=== PATIENT | female | born 1960 | race Caucasian/White ===

== ENCOUNTER 2017-09-10 11:26 | Inpatient (IN) ==
--- NOTE | 2017-09-10 11:40 | Emergency Department Note ---
Lower Extremity Injury HPI - General Chief Complaint: Extremity Injury, Lower Stated Complaint: Infected knee Time Seen by Provider: 09/10/17 11:28 Source: patient Mode of arrival: ambulatory Limitations: no limitations - History of Present Illness HPI Narrative: 56-year-old female presents with infected left total knee. She states about 2 weeks after her surgery which was on July 07 she was doing exercises and her wound opened up. She saw Dr. Olmedo today and he wants to do an I&D of her left knee. She states it is painful. She will be going to surgery right away. She denies any heart issues but does smoke daily. - Related Data Allergies Allergy/AdvReac Type Severity Reaction Status Date / Time No Known Drug Allergies Allergy Verified 09/10/17 11:30 Review of Systems All systems ED: reviewed and negative except as stated. 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 There is serosanguineous drainage from it. She does have erythema below the knee. Warmth as well Limitations: no limitations General appearance: alert, in no apparent distress Head: atraumatic Eye: Present: normal appearance. Absent: conjunctival injection Neck: Present: normal inspection, full ROM Chest: Present: normal inspection, symmetric chest wall rise Respiratory: Present: normal lung sounds bilaterally Cardiovascular: Present: regular rate, normal heart sounds Abdominal: Present: soft, normal bowel sounds. 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) Condition: Fair Referrals: Thien Guardado [Primary Care Provider] -
[2017-09-10] MEDS ORDERED: ceFAZolin 1 GM VIAL ONE ×2 (11:59)
[2017-09-10] MEDS ORDERED: ceFAZolin 1 GM VIAL IV SCH (12:00)
[2017-09-10] MEDS ORDERED: ONDANSETRON 4 MG/2 ML VIAL IV ONE (12:05)
[2017-09-10] MEDS ORDERED: HYDROmorphone 2 MG/ML VIAL IV ONE (12:05)
[2017-09-10] MEDS ORDERED: LIDOCAINE HCL/PF 100 MG/5 ML SYRINGE IV ONE (12:05)
[2017-09-10] MEDS ORDERED: PHENYLEPHRINE 10 MG/ML VIAL IV ONE (12:05)
[2017-09-10] MEDS ORDERED: MIDAZOLAM 2 MG/2 ML VIAL IV ONE (12:05)
[2017-09-10] MEDS ORDERED: PROPOFOL 200 MG/20 ML VIAL IV ONE (12:05)
[2017-09-10] MEDS ORDERED: GLYCOPYRROLATE 0.2 MG/ML VIAL IV ONE (12:05)
[2017-09-10] MEDS ORDERED: DEXAMETHASONE 10 MG/ML VIAL IV ONE (12:05)
[2017-09-10] MEDS ORDERED: KETAMINE 100 MG/ML ML IV ONE (12:05)
[2017-09-10] MEDS ORDERED: PROMETHAZINE 25 MG/ML VIAL IV ONE (12:05)
[2017-09-10] MEDS ORDERED: MEPERIDINE 50 MG/ML INJECTION IM PRN (12:24)
[2017-09-10] MEDS ORDERED: METHOCARBAMOL 1,000 MG/10 ML VIAL IV PRN (12:24)
[2017-09-10] MEDS ORDERED: MEPERIDINE 25 MG/ML SYRINGE IV PRN (12:24)
[2017-09-10] MEDS ORDERED: LACTATED RINGERS 250 ML IV PRN (12:24)
[2017-09-10] MEDS ORDERED: FLUMAZENIL 0.1 MG/ML ML IV PRN (12:24)
[2017-09-10] MEDS ORDERED: fentaNYL 100 MCG/2 ML VIAL IV PRN (12:24)
[2017-09-10] MEDS ORDERED: ACETAMINOPHEN 1,000 MG/100 ML BOTTLE IV ONE (12:24)
[2017-09-10] MEDS ORDERED: BENZOCAINE/MENTHOL 1 LOZENGE PO PRN (12:24)
[2017-09-10] MEDS ORDERED: IPRATROPIUM/ALBUTEROL 3 ML AMPUL.NEB NEB PRN (12:24)
[2017-09-10] MEDS ORDERED: NALOXONE HCL 0.4 MG/ML VIAL IV PRN (12:24)
[2017-09-10] MEDS ORDERED: PROMETHAZINE 25 MG/ML VIAL IM PRN (12:24)
[2017-09-10] MEDS ORDERED: ONDANSETRON 4 MG/2 ML VIAL IV PRN ×2 (12:24→12:39)
[2017-09-10] MEDS ORDERED: LACTATED RINGERS 1,000 ML IV SCH (12:30)
--- NOTE | 2017-09-10 12:38 | Brief Operative Note ---
Date of procedure: 09/10/17 Pre-op diagnosis: Infected total knee arthroplasty with large open wound Post-op diagnosis: same Procedure: Irrigation and debridement of infected total knee arthroplasty Grafts/Implants: No Anesthesia: spinal, GLMA Findings: puss down to joint Complications: none Surgeon: Bryson Olmedo Insurance Underwriting Assistant: PCP No Estimated blood loss (cc): 30 Condition: stable Disposition: PACU
[2017-09-10] MEDS ORDERED: POLYETHYLENE GLYCOL 3350 17 GM PACKET PO PRN (12:39)
[2017-09-10] MEDS ORDERED: TRANEXAMIC ACID 1,000 MG/10 ML VIAL IV ONE (12:39)
[2017-09-10] MEDS ORDERED: MAGNESIUM HYDROXIDE 30 ML ORAL.SUSP PO PRN (12:39)
[2017-09-10] MEDS ORDERED: FLEETS ADULT ENEMA PR PRN (12:39)
[2017-09-10] MEDS ORDERED: BISACODYL 10 MG SUPP.RECT PR PRN (12:39)
[2017-09-10] MEDS ORDERED: VANCOMYCIN PER PHARMACY IV SCH (13:00)
--- NOTE | 2017-09-10 14:06 | Operative Note ---
DATE OF OPERATION: 09/10/2017 PREOPERATIVE DIAGNOSIS: Left infected total knee arthroplasty with large open dehisced wound. POSTOPERATIVE DIAGNOSIS: Left infected total knee arthroplasty with large open dehisced wound. PROCEDURE PERFORMED: SURGEON: Bryson Olmedo MD. CONCRETE [employer] PLANT SUPERVISOR: None. ANESTHESIA: Spinal plus general. DRAINS: None. SPECIMENS: None. COMPLICATIONS: None. BLOOD LOSS: 5 mL POSTOPERATIVE CONDITION: Stable. INDICATIONS FOR SURGERY: This is a 56-year-old female who two months prior had undergone a left total knee arthroplasty for advanced arthrosis. She had done reasonably well postoperatively; however, had had her wound necrose and dehisced open superficially. She did not have any extension into the deep portion and did not ever appear infected, so this was being managed conservatively with a wound V.A.C. She had been doing reasonably well without significant pain or drainage up until several days ago at which point she started having increasing pain and drainage. She presented to the clinic today and her inferior portion of her wound was erythematous with purulent drainage and the mid portion of the wound actually had communication down to the joint prosthesis. I did contact a revision joint specialist in [place] who is going to take her to surgery on Wednesday. She will be transferred to [place] on Wednesday. I was concerned of her getting septic over the weekend as she was feeling worse so elected to proceed with a preliminary washout and to start her on IV antibiotics. FINDINGS AT SURGERY: She did have gross purulence extending down to the prosthesis with an open wound. PROCEDURE IN DETAIL: The patient had been seen in preop holding and informed consent had been obtained after discussion of risks and benefits of surgery. Risks including, but not limited to, bleeding; continued infection; injury to nerves, blood vessels or other surrounding structures; anesthetic risks; the need for further surgery. At minimum, she is going to have the prosthesis removed, treated with IV antibiotics and possibly even amputation if this is not able to heal. She understands these risks and wished to proceed. Correct operative site was marked and patient received spinal anesthesia. She was taken to the operating room and LMA general given. Left lower extremity was prepped and draped in normal sterile fashion and a time-out performed verifying patient name, operative site, and plan. The leg was elevated for a minute, and then tourniquet was inflated and placed into the leg joy. The inferior portion of her incision was opened and connected to the open wound and there was a large purulent pocket over the anterior medial proximal tibia. Once connecting this, we were able to palpate into the joint and the proximal wound already communicated into the joint. We then used a rongeur to debride any purulent or necrotic-looking tissue and then pulse lavaged with saline for about 2000 mL and then irrigated the whole bottle of IrriSept. I let this sit within the joint for 2 minutes and then pulse lavaged with the remaining liter of saline. After this was completed, we used a Betadine soaked Kerlix and packed the wound along with fluffs and ABD. Sterile Kerlix was wrapped loosely around and an Bar wrap and tourniquet was released. The patient was awakened, extubated, and transferred to recovery in stable condition. ZA:david Job ID: [id number] Doc ID: [id number] Bryson Olmedo MD
[2017-09-10 14:25] LABS: Mean Cell Volume 93.1 fL (80.0-100.0); Mean Corpuscular HGB Conc 32.7 g/dL (31.0-36.0); Mean Corpuscular Hemoglobin 30.4 pg (26.0-34.0); Platelet Count 353 K/mcL (140-440); RBC 3.25 M/mcL (4.00-5.20); Red Cell Distribution Width 18.2 % (11.5-14.5)
[2017-09-10 14:47] LABS: C-Reactive Protein 7.2 mg/dl (0.0-0.8)
[2017-09-10] MEDS ORDERED: 0.9 % SODIUM CHLORIDE 10 ML SYRINGE IV PRN (14:54)
[2017-09-10] MEDS ORDERED: VANCOMYCIN 1,500 MG in 0.9 % SODIUM CHLORIDE 500 ML IV ONE (15:00)
[2017-09-10 16:07] LABS: Erythrocyte Sedimentation Rate 100 mm/hr (0-20)
--- NOTE | 2017-09-10 16:11 | XRay Report ---
INDICATION: PICC line placement TECHNIQUE: AP chest x-ray,portable semiupright COMPARISON: None FINDINGS:Left-sided PICC line with its tip in the superior vena cava Lungs are negative. No parenchymal infiltrate or mass. No focal abnormality. Heart size and vascularity are normal. Giuliana and mediastinum are negative. IMPRESSION: 1. Left-sided PICC line in the superior vena cava 2. Otherwise negative chest x-ray Interpreted and Authenticated by: Lenin Crain 09/10/17
[2017-09-10] MEDS: 0.9 % SODIUM CHLORIDE 10 ML SYRINGE IV SCH ×3 (17:08→21:11)
[2017-09-10 17:34] LABS: Anisocytosis 1+ (NONE SEEN); Band Neutrophils % 1 % (0-10); Lymphocytes % 17 % (15-49); Monocytes % (Manual) 4 % (1-12); Myelocytes % 1 % (0-0); Platelet Estimate NORMAL (NORMAL); RBC Morphology ABNORM (NORMAL); Segmented Neutrophils % 75 % (38-78)
--- NOTE | 2017-09-10 17:54 | General Surgery Consult Note ---
History of Present Illness Patient information: Note initiated : 09/10/17 at 5:31 pm Service Date, if different from initiated Date: [] Patient: Criselda Bellamy a 56 y/o F admitted on 09/10/17 for Infected Knee. Chief Complaint: [] Consult date: 09/10/17 Requesting physician: Bryson Olmedo History of present illness: 09/10/2017 17:30 Hours. I saw this lady in consultation for TCOM measurements and EILEEN today. S: This is a 56/F status post Left TKA over 2 months ago. She had wound dehiscence with purulent drainage noticed today. Underwent exploration of surgical wound and purulence pocket which extended into knee joint and prosthesis. The joint was thoroughly washed, lavaged and cultured. Patient is scheduled to be transferred to [place] on Wednesday09/12/2017 for removal of the prosthesis, placement of a spacer AND further revision later. Wound care was consulted for a TCOM and TBI / EILEEN measurements. I saw the patient along with Anitha FRAGOSO and subsequently spoke with Dr. Olmedo at length. O: Patient is a well built and nourished lady in NO distress, Afebrile with stable vital signs. I had a detailed conversation with her. First and foremost, I strongly counseled about TOTAL avoidance of cigarettes and use of any tobacco or nicotine related products to OPTIMIZE her chances of wound healing. HEENT and Neck Exam with in Normal limits. Lungs are clear to auscultation and Heart sounds are normal. Soft abdomen. NON FOCAL and NORMAL neurological examination. BUE and RLE examination is with in normal limits. L/E: LLE. Dressings clean dry and intact. Normal and symmetrical pedal pulses 3 to 4 + DP and PT. No sensory motor deficits. Lower leg, ankle and foot is warm and dry. No calf or thigh tenderness. Ankle joint and toe movements are with in normal range. A: Patient is stable post operatively. DO NOT suspect any limb threatening ISCHEMIC process. Her base line clinical evaluation is with in normal limits. She is stable to be observed and transferred to [place] on Wednesday09/12/2017. I will hold off on any TBI / EILEEN or TCOM measurements at this time and follow her clinically over the week end and until her transfer to [place]. Will be glad to see her for wound related issues upon her return from [place] after corrective surgery. THANK YOU DR. OLMEDO for this consult and allowing me to participate in her care. Medications and Allergies Allergies Allergy/AdvReac Type Severity Reaction Status Date / Time No Known Drug Allergies Allergy Verified 09/10/17 11:30 Exam Temp Pulse Resp BP Pulse Ox 98.0 F 73 15 159/87 95 09/10/17 13:29 09/10/17 13:20 09/10/17 13:20 09/10/17 15:00 09/10/17 15:00 Results - Labs 09/10/17 13:45 Abnormal lab results 09/10/17 09/10/17 Range/Units 13:45 13:45 RBC 3.25 L (4.00-5.20) M/mcL Hgb 9.9 L (12.0-15.0) g/dL Hct 30.3 L (36.0-48.0) % RDW 18.2 H (11.5-14.5) % MPV 6.2 L (7.4-10.4) fL ESR 100 H (0-20) mm/hr C-Reactive Protein 7.2 H (0.0-0.8) mg/dl All other labs normal.
[2017-09-10] MEDS: HYDROCODONE/APAP 7.5/325MG TABLET PO PRN ×2 (18:04→22:00)
[2017-09-10] MEDS: NICOTINE 21 MG PATCH TOPICAL SCH (18:05)
[2017-09-10] MEDS ORDERED: ALBUTEROL SULFATE 1 PUFF INHALER INH PRN (18:37)
[2017-09-10] MEDS ORDERED: ROSUVASTATIN 10 MG TABLET PO SCH (21:00)
[2017-09-10] MEDS: DOCUSATE SODIUM 100 MG CAPSULE PO SCH ×2 (21:01→21:04)
[2017-09-10] MEDS: ATORVASTATIN 20 MG TABLET PO SCH (21:01)
[2017-09-10] MEDS: LORazepam 0.5 MG TABLET PO SCH (21:01)
[2017-09-11] MEDS: HYDROCODONE/APAP 7.5/325MG TABLET PO PRN ×4 (01:56→20:24)
[2017-09-11] MEDS: 0.9 % SODIUM CHLORIDE 10 ML SYRINGE IV SCH ×4 (05:09→21:45)
--- NOTE | 2017-09-11 06:53 | General Surgery Progress Note ---
Subjective Narrative: Note initiated : 09/11/17 at 6:49 am Service Date, if different from initiated Date: [] Patient: Criselda Bellamy 56 y/o F admitted on 09/10/17 for Infected Knee. Chief Complaint: [] Patient seen with nursing staff. Uneventful night except for post operative pain. Full ROM of Left ankle and toes PWD. Objective Temp Pulse Resp BP Pulse Ox 98.7 F 62 16 174/92 97 09/11/17 04:00 09/11/17 04:00 09/11/17 04:00 09/11/17 04:00 09/11/17 04:00 AVSS. No Changes DIMITRY> Left foot Normal exam. Bounding pulses. FROM toes PWD. Wound checked. NO purulence. Betadine soaked overlying gauze replaced. Reinforced and redressed. - Additional Data Intake & Output - Last 24 hours: Intake & Output 09/09/17 09/10/17 09/11/17 09/12/17 05:59 05:59 05:59 05:59 Intake Total 2790 / 2790 Output Total 3430 / 3430 Balance -640 / -640 Weight 149 lb 8 oz - Labs 09/10/17 13:45 Assessment and Plan - Narrative A/P Narrative: Assessment: Stable: No interval changes. Plan: Continue to observe and monitor. Awaits transfer to [place] tomorrow. 09/12/2017 - Time Spent With Patient Total time spent is greater than 50% in coordination of care (as documented) at patient's floor/unit and/or counseling patient: 15 - 24 minutes
--- NOTE | 2017-09-11 07:15 | Orthopedic Progress Note ---
Subjective Patient information: Note initiated : 09/11/17 at 7:14 am Service Date, if different from initiated Date: [] Patient: Criselda Bellamy 56 y/o F admitted on 09/10/17 for Infected Knee. Chief Complaint: [POD #1 s/p I&D of left knee Doing okay. Denies numbness, tingling, calf pain, CP or SOB. Was seen in conjunction with Dr. Spencer. Pulses distally are bounding. Wound redressed by myself with RN in room. [facility]- planning to research options today.] Objective Vital signs: Vital Signs Temp Pulse Pulse Resp BP BP BP 09/11/17 06:54 97.3 F 16 185/94 09/11/17 04:00 98.7 F 62 16 174/92 09/10/17 23:43 98.4 F 65 14 176/83 09/10/17 23:42 09/10/17 20:00 09/10/17 19:12 98.7 F 72 16 162/86 09/10/17 16:43 09/10/17 15:00 159/87 09/10/17 14:29 160/97 09/10/17 14:14 152/80 09/10/17 13:59 157/88 09/10/17 13:44 146/80 09/10/17 13:29 98.0 F 147/95 09/10/17 13:20 98.7 F 73 15 146/80 09/10/17 13:05 64 16 145/77 09/10/17 12:47 97.4 F 64 9 L 106/63 09/10/17 11:48 98.2 F 74 18 161/84 09/10/17 11:26 98.2 F 74 18 161/84 Pulse Ox 09/11/17 06:54 97 09/11/17 04:00 97 09/10/17 23:43 97 09/10/17 23:42 97 09/10/17 20:00 96 09/10/17 19:12 96 09/10/17 16:43 95 09/10/17 15:00 95 09/10/17 14:29 93 09/10/17 14:14 95 09/10/17 13:59 90 09/10/17 13:44 94 09/10/17 13:29 93 09/10/17 13:20 97 09/10/17 13:05 96 09/10/17 12:47 100 09/10/17 11:48 96 09/10/17 11:26 96 Intake and Output 09/10/17 09/11/17 09/11/17 21:59 05:59 13:59 Intake Total 740 / 740 800 / 800 Output Total 2099 1300 / 1300 Balance -1360 / -1360 -500 / -500 Intake: IV 500 / 500 Oral 240 / 240 800 / 800 Output: Void Amount 2099 1300 / 1300 Other: Meal Dinner Percent of Meal Consumed 75% Feeding Ability Independent # Voids 1 Weight 149 lb 8 oz Intake & Output: Intake & Output 09/10/17 09/11/17 09/11/17 21:59 05:59 13:59 Intake Total 740 / 740 800 / 800 Output Total 2099 1300 / 1300 Balance -1360 / -1360 -500 / -500 Weight 149 lb 8 oz Intake: IV 500 / 500 Oral 240 / 240 800 / 800 Output: Void Amount 2099 1300 / 1300 Other: Meal Dinner Percent of Meal Consumed 75% Feeding Ability Independent # Voids 1 Incision: Yes draining, Yes clean and dry Incision clean and dry: Yes (dressing changed by myself, open wound without gross drainage) Dressing: Yes clean, Yes dry, Yes intact Weight bearing status: non Range of motion: full AROM b/l feet/ankles Neurological exam IM: Yes alert, Yes oriented X3, Yes motor sensory intact, Yes neurovascular intact Extremities exam IM: No calf tenderness, Yes normal capillary refill, Yes normal inspection, No Day's sign, Yes Foot pink and warm, Yes neurovascular intact - [place] Pulses Peripheral pulses: 2+: dorsalis pedis (L), dorsalis pedis (R), posterior tibialis (L), posterior tibialis (R) - Labs CBC & BMP: 09/10/17 13:45 Labs: 09/10/17 13:45 Hgb 9.9 L Hct 30.3 L Assessment and Plan (1) Infection of total left knee replacement POD #1 s/p left knee I&D: -planning to d/c to [place] on 09/12/2017 for left total knee revision -PICC line in place for IV Vanco -wound appears healthy. Cultures still pending. No WBC count elevation as of today -nurses trying to arrange for transportation of patient to [place] -no need to rechange dressing today unless soaks through -discussed CIWA protocol with pharmacy. Adding Ativan prn withdrawal symptoms to patient's med list Status: Acute
[2017-09-11] MEDS ORDERED: LORazepam 2 MG/ML VIAL IV PRN (07:19)
[2017-09-11] MEDS: HYDROCHLOROTHIAZIDE 25 MG TABLET PO SCH (09:31)
[2017-09-11] MEDS: DOCUSATE SODIUM 100 MG CAPSULE PO SCH (09:32)
[2017-09-11] MEDS: LISINOPRIL 20 MG TABLET PO SCH (09:32)
[2017-09-11] MEDS: SERTRALINE 100 MG TABLET PO SCH (09:32)
[2017-09-11] MEDS: LORazepam 0.5 MG TABLET PO SCH ×2 (09:32→20:20)
[2017-09-11] MEDS: METOPROLOL SUCCINATE 50 MG TAB.XL.24H PO SCH (09:32)
[2017-09-11] MEDS: VANCOMYCIN 1,000 MG in 0.9 % SODIUM CHLORIDE 250 ML IV SCH ×2 (09:33→21:00)
[2017-09-11] MEDS ORDERED: NICOTINE 21 MG PATCH TOPICAL SCH (10:00)
[2017-09-11] MEDS: MULTIVIT,THER IRON,CA,FA & MIN 1 TABLET PO SCH (10:27)
[2017-09-11] MEDS: NICOTINE 21 MG PATCH TOPICAL SCH (10:27)
--- NOTE | 2017-09-11 11:47 | Discharge Summary ---
Ortho Discharge - TKA - Patient Instructions Diet: Regular Diet Activity: weight bearing as tolerated Total Knee Protocol: For Total Knee: Start ROM LOLI with stationary bike or rocking chair. Work on gaining full extension of knee. Posterior dislocation precautions provided. Hip abductor strengthening and gait training instructions provided. Apply Cryocuff as instructed. Dressing Care: Other (keep wound dry) - Follow Up Plan Follow Up Appointments: Thien Guardado [Physician] - Disposition: [facility] Prognosis: Fair Rehab Potential: Fair
--- NOTE | 2017-09-11 12:06 | Orthopedic Progress Note ---
Subjective Patient information: Note initiated : 09/11/17 at 12:03 pm Service Date, if different from initiated Date: [] Patient: Criselda Bellamy 56 y/o F admitted on 09/10/17 for Infected Knee. Chief Complaint: [] Principal diagnosis: infected TKA with dehisced wound Interval history: c/o pain Objective Vital signs: Vital Signs Temp Pulse Resp BP BP Pulse Ox 09/11/17 07:17 16 97 09/11/17 06:54 97.3 F 16 185/94 97 09/11/17 04:00 98.7 F 62 16 174/92 97 09/10/17 23:43 98.4 F 65 14 176/83 97 09/10/17 23:42 97 09/10/17 20:00 96 09/10/17 19:12 98.7 F 72 16 162/86 96 09/10/17 16:43 95 09/10/17 15:00 159/87 95 09/10/17 14:29 160/97 93 09/10/17 14:14 152/80 95 09/10/17 13:59 157/88 90 09/10/17 13:44 146/80 94 09/10/17 13:29 98.0 F 147/95 93 09/10/17 13:20 98.7 F 73 15 146/80 97 09/10/17 13:05 64 16 145/77 96 09/10/17 12:47 97.4 F 64 9 L 106/63 100 Intake and Output 09/10/17 09/11/17 09/11/17 21:59 05:59 13:59 Intake Total 740 / 740 800 / 800 Output Total 2099 1300 / 1300 Balance -1360 / -1360 -500 / -500 Intake: IV 500 / 500 Oral 240 / 240 800 / 800 Output: Void Amount 2099 1300 / 1300 Other: Meal Dinner Percent of Meal Consumed 75% Feeding Ability Independent # Voids 1 Weight 149 lb 8 oz Intake & Output: Intake & Output 09/10/17 09/11/17 09/11/17 21:59 05:59 13:59 Intake Total 740 / 740 800 / 800 Output Total 2099 1300 / 1300 Balance -1360 / -1360 -500 / -500 Weight 149 lb 8 oz Intake: IV 500 / 500 Oral 240 / 240 800 / 800 Output: Void Amount 2100 / 2100 1300 / 1300 Other: Meal Dinner Percent of Meal Consumed 75% Feeding Ability Independent # Voids 1 Dressing: Yes clean, Yes dry, Yes intact - Labs CBC & BMP: 09/10/17 13:45 Labs: 09/10/17 13:45 Hgb 9.9 L Hct 30.3 L Assessment and Plan (1) Infection of total left knee replacement POD#1 s/p I&D-afebrile, normal WBC, wound cx is currently lost -cont IV abx and dressing changes -transfer to [facility] in [place] tomorrow, Dr. Robbie Carolina accepting physician -try to track down cx specimen (pt delivered it to [facility] directly yesterday) Status: Acute
[2017-09-11] MEDS ORDERED: OMEPRAZOLE 20 MG CAPSULE PO ONE (20:11)
[2017-09-11] MEDS: ATORVASTATIN 20 MG TABLET PO SCH (21:00)
[2017-09-12] MEDS: HYDROCODONE/APAP 7.5/325MG TABLET PO PRN ×4 (00:30→16:44)
[2017-09-12] MEDS: 0.9 % SODIUM CHLORIDE 10 ML SYRINGE IV SCH ×4 (08:00→15:07)
[2017-09-12] MEDS: LISINOPRIL 20 MG TABLET PO SCH (08:55)
[2017-09-12] MEDS: LORazepam 0.5 MG TABLET PO SCH (08:55)
[2017-09-12] MEDS: METOPROLOL SUCCINATE 50 MG TAB.XL.24H PO SCH (08:55)
[2017-09-12] MEDS: SERTRALINE 100 MG TABLET PO SCH (08:55)
[2017-09-12] MEDS: MULTIVIT,THER IRON,CA,FA & MIN 1 TABLET PO SCH (08:55)
[2017-09-12] MEDS: HYDROCHLOROTHIAZIDE 25 MG TABLET PO SCH (08:55)
[2017-09-12] MEDS: OMEPRAZOLE 20 MG CAPSULE PO SCH ×2 (08:55→18:38)
[2017-09-12] MEDS: NICOTINE 21 MG PATCH TOPICAL SCH (10:00)
[2017-09-12] MEDS: DOCUSATE SODIUM 100 MG CAPSULE PO SCH ×2 (14:33→18:36)
[2017-09-12] MEDS: VANCOMYCIN 1,000 MG in 0.9 % SODIUM CHLORIDE 250 ML IV SCH (14:53)
--- NOTE | 2017-09-13 15:11 | Discharge Summary ---
DATE OF ADMISSION: 09/10/2017 DATE OF DISCHARGE: 09/12/2017 ADMITTING PHYSICIAN: Bryson Olmedo MD ATTENDING PHYSICIAN: Bryson Olmedo MD CHIEF COMPLAINT: Painful, draining right knee wound. HISTORY OF PRESENT ILLNESS: This is a 56-year-old female who underwent a total knee arthroplasty by me approximately two months prior. She is a heavy smoker and ended up having a wound that became somewhat necrotic and then dehisced. She was being managed nonoperatively due to the fact that the wound did not connect deep and there was no evidence of infection. She is being treated with a wound V.A.C. Approximately 4 days prior to admission she started having increasing pain as well as drainage from the wound. She was started on oral antibiotics and was told to follow up with me. She came in on 09/10 and was noted to have significant erythema and drainage. She was then sent to [facility] where I recommended surgical I and D. PRINCIPAL DIAGNOSIS: infected right total knee prosthesis with large nonhealing wound. OTHER DIAGNOSES: 1. Hypertension. 2. Alcohol abuse. 3. Nicotine dependence. 4. Anxiety and depression. PROCEDURES: On 09/10/2017 patient underwent an incision, irrigation and debridement performed by me. HOSPITAL COURSE: The patient was admitted for surgical irrigation and debridement and to start on IV antibiotics. I had contacted Dr. Robbie Austin in [place], who has accepted the patient for transfer on 09/12/2017 for anticipated surgical removal of her prosthesis on 09/13/2017 at [facility]. She was afebrile throughout her hospitalization. Vital signs were stable. Erythrocyte sedimentation rate was 100 and C-reactive protein was over 7. White blood cell count was normal. Cultures are still pending discharge. DISCHARGE ORDERS: She was discharged to [facility] in [place], Dr. Robbie Austin, accepting physician. Activity as tolerated, diet regular. MEDICATIONS: She is currently on vancomycin, dosing per the pharmacy. She does have a PICC line for this. She is also taking her home medications as well as [place] 10/325 mg for pain. She is instructed to follow up with me as needed, and most likely will be following up with Dr. Austin. BJB:[email or web address] Job ID: [id number] Doc ID: [id number] Bryson Olmedo MD
== END 2017-09-12 17:00 | disposition short-term general hospital (02) | DRG 464 ==
LOC: ED 11:26 → SUR 11:42 → MEDSUR 13:27
PROVIDERS: ADMIT Orthopaedic Surgery; ATTEND Orthopaedic Surgery

== ENCOUNTER 2023-08-23 07:30 | Inpatient (IN) ==
[2023-08-12 12:57] LABS: Appearance,Urine Clear (Clear); Bilirubin,Urine Negative (Negative); Color,Urine Yellow; Glucose,Urine (UA) Negative (Negative); Ketones,Urine Negative (Negative); Leukocyte Esterase,Urine Negative /uL (Negative); Nitrate,Urine Negative (Negative); PH,Urine 5.5 (5.0-9.0); Protein,Urine >=300 mg/dL (Negative); Specific Gravity,Urine 1.025 (1.000-1.035); Urine Blood Negative ery/mcL (Negative); Urobilinogen,Urine Normal
[2023-08-12 12:58] LABS: Basophils # (Auto) 0.05 K/mcL (0.00-0.30); Basophils % (Auto) 0.9 % (0.0-2.0); Eosinophils # (Auto) 0.12 K/mcL (0.00-0.70); Eosinophils % (Auto) 2.2 % (0.0-7.0); Hematocrit 34.3 % (34.1-44.9); Hemoglobin 10.5 g/dL (11.2-15.7); Lymphocytes # (Auto) 1.33 K/mcL (1.50-4.80); Lymphocytes % (Auto) 24.3 % (15.5-49.0); Mean Cell Volume 95.5 fL (80.0-100.0); Mean Corpuscular HGB Conc 30.6 g/dL (31.0-36.0); Mean Platelet Volume 9.8 fL (8.8-12.5); Monocytes # (Auto) 0.33 K/mcL (0.10-0.90); Neutrophils % (Auto) 66.2 % (38.0-78.0); Platelet Count 198 K/mcL (140-440); RBC 3.59 M/mcL (3.59-5.38); Red Cell Distribution Width 14.6 % (11.5-14.5); WBC 5.5 K/mcL (4.5-11.0)
[2023-08-12 13:14] LABS: Urine Hyaline Cast 1 /lph (0-2); Urine RBC 0 /hpf (0-3); Urine Squamous Epithelial Cell 1 /hpf (0-4); Urine WBC 0 /hpf (0-4)
[2023-08-12 13:33] LABS: ALT/SGPT 17 U/L (<40); AST/SGOT 26 U/L (<32); Albumin 4.2 gm/dL (3.2-5.2); Albumin/Globulin Ratio 1.4 (1.0-2.3); Alkaline Phosphatase 94 U/L (39-117); Bilirubin,Total < 0.2 mg/dL (0.1-1.0); Blood Urea Nitrogen 21 mg/dL (8-23); Calcium 8.8 mg/dL (8.6-10.4); Carbon Dioxide 24 mmol/L (22-30); Chloride 101 mmol/L (96-108); Globulin 3.1 gm/dL (2.2-3.7); Glomerular Filtration Rate 48; Glucose 89 mg/dL (70-105)
[2023-08-12 16:50] LABS: Hemoglobin A1C 5.9 % Hgb (4.0-6.0)
[2023-08-23] MEDS ORDERED: IPRATROPIUM/ALBUTEROL 3 ML AMPUL.NEB NEB PRN ×2 (08:30→13:00)
[2023-08-23] MEDS ORDERED: SCOPOLAMINE 1 PATCH PATCH TOPICAL PRN (08:30)
[2023-08-23] MEDS: oxyCODONE 10 MG TAB.ER.12H PO SCH (08:46)
[2023-08-23] MEDS: ACETAMINOPHEN 500 MG TABLET PO SCH (08:47)
[2023-08-23] MEDS: PREGABALIN 100 MG CAPSULE PO SCH ×2 (08:47→16:52)
[2023-08-23] MEDS: CELECOXIB 200 MG CAPSULE PO SCH (08:47)
[2023-08-23] MEDS ORDERED: KETAMINE 50 MG/ML Syringe IV ONE (11:19)
[2023-08-23] MEDS ORDERED: PROPOFOL 200 MG/20 ML VIAL IV ONE (11:19)
[2023-08-23] MEDS ORDERED: DEXAMETHASONE 10 MG/ML VIAL ONE (11:19)
[2023-08-23] MEDS ORDERED: ONDANSETRON 4 MG/2 ML VIAL ONE (11:19)
[2023-08-23] MEDS ORDERED: LIDOCAINE 2% PF 5 ML VIAL ONE (11:19)
[2023-08-23] MEDS ORDERED: TRANEXAMIC ACID 1,000 MG/10 ML VIAL ONE (11:19)
[2023-08-23] MEDS ORDERED: fentaNYL 100 MCG/2 ML VIAL ONE (11:19)
[2023-08-23] MEDS ORDERED: ROPIVACAINE HCL/PF 30 ML VIAL IJ ONE (11:19)
[2023-08-23] MEDS ORDERED: MAGNESIUM SULFATE 2 GM/50 ML BAG IV ONE (11:20)
[2023-08-23] MEDS: ceFAZolin 2 GM in DEXTROSE 5% IN WATER 50 ML IV SCH (11:51)
[2023-08-23] MEDS ORDERED: ALBUTEROL SULFATE 60 PUFF INHALER ONE (12:05)
[2023-08-23] MEDS ORDERED: ePHEDrine 50 MG/ML AMPUL IV ONE (12:42)
[2023-08-23] MEDS ORDERED: GLYCOPYRROLATE 0.2 MG/ML VIAL IV ONE (12:42)
[2023-08-23] MEDS ORDERED: MEPERIDINE 25 MG/ML VIAL IV PRN (13:00)
[2023-08-23] MEDS ORDERED: ONDANSETRON 4 MG/2 ML VIAL IV PRN (13:00)
[2023-08-23] MEDS ORDERED: PROMETHAZINE 25 MG/ML VIAL IV PRN (13:00)
[2023-08-23] MEDS ORDERED: NALOXONE HCL 0.4 MG/ML VIAL IV PRN (13:00)
[2023-08-23] MEDS ORDERED: LACTATED RINGERS 250 ML IV PRN (13:00)
[2023-08-23] MEDS ORDERED: fentaNYL 100 MCG/2 ML VIAL IV PRN (13:00)
[2023-08-23] MEDS ORDERED: diphenhydrAMINE 50 MG/ML VIAL IV PRN (13:00)
[2023-08-23] MEDS ORDERED: HYDROmorphone 0.5 MG/0.5 ML SYRINGE IV PRN (13:00)
[2023-08-23] MEDS ORDERED: HYDROmorphone 1 MG/ML SYRINGE IV PRN (13:12)
[2023-08-23] MEDS: METHOCARBAMOL 1,000 MG/10 ML VIAL IV PRN (14:07)
[2023-08-23] MEDS: LACTATED RINGERS 1,000 ML IV SCH (14:48)
[2023-08-23] MEDS ORDERED: ACETAMINOPHEN 325 MG TABLET PO PRN (15:00)
[2023-08-23] MEDS: ALBUTEROL SULFATE 60 PUFF INHALER INH SCH (16:51)
[2023-08-23] MEDS: oxyCODONE IR 5 MG TABLET PO SCH (16:51)
[2023-08-23] MEDS: CALCIUM (OYSTER SHELL) 500 MG TABLET PO SCH (16:51)
[2023-08-23] MEDS: KETOROLAC 15 MG/ML VIAL IV PRN (18:33)
[2023-08-23] MEDS: oxyCODONE/APAP 5/325MG TABLET PO PRN (21:16)
[2023-08-23] MEDS: traZODone HCL 50 MG TABLET PO PRN (21:17)
[2023-08-23] MEDS: MELATONIN 3 MG TABLET PO PRN (21:17)
[2023-08-23] MEDS: LORazepam 0.5 MG TABLET PO PRN (21:18)
[2023-08-23] MEDS: FLUTICASONE/SALMETEROL 250/50 INHALER #14 INH SCH (21:23)
[2023-08-24] MEDS: 0.9 % SODIUM CHLORIDE 10 ML SYRINGE IV SCH (05:25)
[2023-08-24] MEDS: OMEPRAZOLE 20 MG CAPSULE PO SCH (07:04)
[2023-08-24] MEDS: METOPROLOL SUCCINATE 50 MG TAB.XL.24H PO SCH (08:35)
[2023-08-24] MEDS: ARIPIPRAZOLE 5 MG TABLET PO SCH (08:35)
[2023-08-24] MEDS: LISINOPRIL 10 MG TABLET PO SCH (08:35)
[2023-08-24] MEDS: MULTIVIT,THER IRON,CA,FA & MIN 1 TABLET PO SCH (08:35)
[2023-08-24] MEDS: ASPIRIN 81 MG TAB.CHEW PO SCH (08:35)
[2023-08-24] MEDS: CITALOPRAM 20 MG TABLET PO SCH (08:35)
[2023-08-24] MEDS: PRIMIDONE 50 MG TABLET PO SCH (08:35)
[2023-08-24] MEDS: buPROPion 150 MG TAB.XL.24H PO SCH (08:35)
[2023-08-24] MEDS: DULAGLUTIDE 0.75 MG/0.5 ML SUB-Q SCH (10:06)
[2023-08-24] MEDS: [UNRECOGNIZED DRUG - OTHER] SUB-Q SCH (10:06)
== END 2023-08-26 10:45 | DRG 483 ==
LOC: EDSTATUS 07:30 → MEDSUR 08:26
PROVIDERS: ADMIT Orthopaedic Surgery; ATTEND Orthopaedic Surgery